=== PATIENT | female | born 1980 | race Caucasian/White ===

== ENCOUNTER 2016-10-02 14:26 | Emergency (ER) | payer BC, OTHER ==
[2016-10-02 14:26] VITALS: BMI 27.0
[2016-10-02 14:33] VITALS: PULSE 96; O2SAT 100
[2016-10-02] MEDS ORDERED: Amoxicillin-Clav 875-125 mg Tab PO STA (14:53)
[2016-10-02] MEDS ORDERED: Amoxicillin-Clav 875-125 mg Tab PO ONE (15:04)
--- NOTE | 2016-10-02 15:22 | C.PDOC ---
History Of Present Illness 36 year old female presents to the ED with complaints of nasal congestion and bilateral earache that has developed gradually since this morning. Patient reports, intermittent Left upper central toothache for past few days. Patient denies fever, chills, headache, dizziness, vertigo, ear discharges, sore throat , neck pain, drooling, trismus, facial swelling, recent dental work, cough, shortness of breath, abd. pain, N/V/D, back pain, denies any other active complaints. Ambulate to Ed for evaluation, not in any apparent distress. Time Seen by Provider: 10/02/16 14:44 Chief Complaint (Nursing): ENT Problem History Per: Patient History/Exam Limitations: None Onset/Duration Of Symptoms: Hrs Current Symptoms Are (Timing): Still Present Quality (Ear): Other (bilateral earache ) Anticoagulant/Antiplatlet Use?: No Recent Aspirin Use: No Past Medical History Reviewed: Historical Data, Nursing Documentation, Vital Signs Vital Signs: Last Vital Signs Temp 99.5 F 10/02/16 15:52 Pulse 96 H 10/02/16 15:52 Resp 12 10/02/16 15:52 BP 118/80 10/02/16 15:52 Pulse Ox 100 10/02/16 16:16 - [facility] Procedures MANUAL ASSIST DELIV NEC (07/04/13) Family History: States: Unknown Family Hx - Social History Hx Alcohol Use: No Hx Substance Use: No - Immunization History Hx Tetanus Toxoid Vaccination: No Hx Influenza Vaccination: No Hx Pneumococcal Vaccination: No Review Of Systems Constitutional: Negative for: Fever, Chills ENT: Positive for: Nose Congestion, Other (bilateral earache ) Cardiovascular: Negative for: Chest Pain, Palpitations Respiratory: Negative for: Cough, Shortness of Breath Gastrointestinal: Negative for: Nausea, Vomiting Physical Exam - Physical Exam Appears: Well, Non-toxic, No Acute Distress Skin: Normal Color, Warm, Dry, No Rash Eye(s): bilateral: PERRL Nose: No Flaring, Discharge (B/L nasal congestion with scant clear rhinorhea), Other (mild B/L paranasal tenderness. No edema, no erythema.) Oral Mucosa: Moist Tongue: Normal Appearing Lips: Normal Appearing Teeth: Caries (Left upper central incisor with mild tenderness to percussion.) Gingiva: No Erythema, No Swelling, No Abscess Throat: Normal, No Erythema, No Exudate, No Drooling Neck: Supple Cardiovascular: Rhythm Regular Respiratory: No Stridor, No Wheezing Extremity: Normal ROM, No Deformity, No Swelling Neurological/Psych: Oriented x3, Normal Speech ED Course And Treatment O2 Sat by Pulse Oximetry: 100 (room air ) Pulse Ox Interpretation: Normal Progress Note: On re-evaluation, pt is afebrile, hemodynamicaly stable. Non- toxic. Tolerate Po well in ED. Ambulatory in ED with stable gait. PulseOx 100 % RA. Neck: Supple, (-) meningeal sign. ENT: exam c/w acute maxillar sinusitis. No facial swelling, no evidence of tooth abscess. Lungs: CTA B/L, BS equal B/L. ABd: benign. Pt advised on wound care. ref. to F/u with PMD and ENT in 1-2 days for re-eval. return if any new changes. Disposition Counseled Patient/Family Regarding: Diagnosis, Need For Followup, Rx Given - Disposition Referrals: [facility] at [facility] [Outside] Bubba Damico MD [Staff Provider] - Disposition: HOME/ ROUTINE Disposition Time: 15:19 Condition: STABLE Additional Instructions: Avid exposure to cold air Take medication as prescribed Follow up with PMD in 2-3 days for re-evaluation. Return to ED if any worsening or new changes. Prescriptions: Amoxicillin/Clavulanate [Augmentin 875 MG-125 MG] 1 tab PO BID #14 tab Prednisone [Deltasone] 20 mg PO DAILY #3 tablet Instructions: Sinusitis (ED) Forms: [facility] (Belarusian), Work Excuse - Clinical Impression Clinical Impression: Acute maxillary sinusitis - Scribe Statement The provider has reviewed the documentation as recorded by the Scribe Dottie Maria All medical record entries made by the Scribe were at my direction and personally dictated by me. I have reviewed the chart and agree that the record accurately reflects my personal performance of the history, physical exam, medical decision making, and the department course for this patient. I have also personally directed, reviewed, and agree with the discharge instructions and disposition.
[2016-10-02 15:53] VITALS: BP 118/80; RESP 12; TEMP 99.5
== END 2016-10-02 15:53 | disposition home or self-care (01) ==
LOC: C.ER 14:26
DX: J01.00 Acute maxillary sinusitis, unspecified (principal)

== ENCOUNTER 2017-01-30 11:01 | Emergency (ER) | payer BC ==
[2017-01-30 11:01] VITALS: BMI 27.0
[2017-01-30 11:15] VITALS: BP 123/88; PULSE 83; RESP 18; TEMP 97.8; O2SAT 100
[2017-01-30 11:55] LABS: RBC URINE 12 /hpf (0-3); URINE BILIRUBIN NEGATIVE (NEGATIVE); URINE BLOOD 1+ (NEGATIVE); URINE COLOR Yellow (YELLOW); URINE GLUCOSE (UA) NORMAL (Normal); URINE KETONE NEGATIVE (NEGATIVE); URINE LEUKOCYTE ESTERASE TRACE Leu/uL (Negative); URINE PROTEIN NEGATIVE (NEGATIVE); URINE UROBILINOGEN NORMAL mg/dL (0.2-1.0); WBC URINE 3 /hpf (0-5)
--- NOTE | 2017-01-30 11:58 | C.PDOC ---
History Of Present Illness 36 yr female presents to the ER with complaints of left lower back pain for the past 2 weeks. Patient states the pain is dull, intermittent and increases with movement, state sits deep and 10/10. Patient states she was at work today, sneezed and felt something split in the area. Patient states the pain is made worse with breathing and movement. Denies fever, chills, chest pain, SOB, nausea , vomiting, abdominal pain, dysuria, incontinence, weakness or numbness. Time Seen by Provider: 01/30/17 11:57 Chief Complaint (Nursing): Back Pain History Per: Patient History/Exam Limitations: no limitations Onset/Duration Of Symptoms: Persistent (2 weeks) Past Medical History Reviewed: Historical Data, Nursing Documentation, Vital Signs Vital Signs: Last Vital Signs Temp 97.8 F 01/30/17 11:14 Pulse 83 01/30/17 11:14 Resp 18 01/30/17 11:14 BP 123/88 01/30/17 11:14 Pulse Ox 100 01/30/17 13:31 - [facility] Procedures MANUAL ASSIST DELIV NEC (07/04/13) Family History: States: No Known Family Hx - Social History Hx Alcohol Use: No Hx Substance Use: No - Immunization History Hx Tetanus Toxoid Vaccination: No Hx Influenza Vaccination: No Hx Pneumococcal Vaccination: No Review Of Systems Except As Marked, All Systems Reviewed And Found Negative. Constitutional: Negative for: Fever, Chills Cardiovascular: Negative for: Chest Pain Respiratory: Negative for: Shortness of Breath Gastrointestinal: Negative for: Nausea, Vomiting, Abdominal Pain Genitourinary: Negative for: Dysuria, Incontinence Musculoskeletal: Positive for: Back Pain (Left lower back pain) Neurological: Negative for: Weakness, Numbness Physical Exam - Physical Exam Appears: Non-toxic, In Acute Distress (Mild pain. Favoring left side. Splinting. ) Skin: Warm, Dry, No Rash Head: Atraumatic, Normacephalic Chest: Symmetrical, No Tenderness Cardiovascular: Rhythm Regular, No Murmur Respiratory: Normal Breath Sounds, No Rales, No Rhonchi, No Stridor, No Wheezing Gastrointestinal/Abdominal: Normal Exam, Soft, No Tenderness, No Guarding, No Rebound Back: Other ((+) Point tenderness to the inferior to the 12th rib, left side.) Neurological/Psych: Oriented x3, Normal Speech, Normal Motor ED Course And Treatment O2 Sat by Pulse Oximetry: 100 (RA) Pulse Ox Interpretation: Normal - Other Rad CXR X-Ray: Viewed By Me, Read By Radiologist Interpretation: HISTORY: mid back pain. COMPARISON: None available. TECHNIQUE: Chest PA and lateral. FINDINGS: LUNGS: No focal consolidation. Please note that chest x-ray has limited sensitivity for the detection of pulmonary masses. PLEURA: No significant pleural effusion identified. No definite pneumothorax . CARDIOVASCULAR: The cardiomediastinal silhouette appears within normal limits of size. OSSEOUS STRUCTURES: No acute osseous abnormality identified. VISUALIZED UPPER ABDOMEN: Unremarkable. OTHER FINDINGS: None. IMPRESSION: No focal consolidation, significant pleural effusion, or definite pneumothorax identified. Medical Decision Making Medical Decision Making: PLAN: * CXR * Urinalysis * Lidoderm TD * Motrin PO * Tylenol PO * Valium PO Disposition Counseled Patient/Family Regarding: Studies Performed, Diagnosis, Need For Followup, Rx Given - Disposition Referrals: [facility] at [facility] [Outside] Disposition: HOME/ ROUTINE Disposition Time: 13:35 Condition: STABLE Additional Instructions: Don't drive wile taking medication. Follow up with your doctor or the clinic. Prescriptions: diaZEpam [Valium] 5 mg PO TID #15 tab Ibuprofen [Motrin] 600 mg PO TID #15 tab Instructions: Muscle Spasm (ED) Forms: [facility] (Georgian), General Discharge Instructions, Work Excuse - POA Present On Arrival: None - Clinical Impression Clinical Impression: Muscle spasm - Scribe Statement The provider has reviewed the documentation as recorded by the Marlinibe Danielle Preciado Provider Attestation: All medical record entries made by the Mary were at my direction and personally dictated by me. I have reviewed the chart and agree that the record accurately reflects my personal performance of the history, physical exam, medical decision making, and the department course for this patient. I have also personally directed, reviewed, and agree with the discharge instructions and disposition.
[2017-01-30] MEDS ORDERED: Lidocaine 5% Patch TD STA (12:02)
--- NOTE | 2017-01-30 12:08 | RAD ---
HISTORY: mid back pain COMPARISON: None available. TECHNIQUE: Chest PA and lateral FINDINGS: LUNGS: No focal consolidation. Please note that chest x-ray has limited sensitivity for the detection of pulmonary masses. PLEURA: No significant pleural effusion identified. No definite pneumothorax . CARDIOVASCULAR: The cardiomediastinal silhouette appears within normal limits of size. OSSEOUS STRUCTURES: No acute osseous abnormality identified. VISUALIZED UPPER ABDOMEN: Unremarkable. OTHER FINDINGS: None. IMPRESSION: No focal consolidation, significant pleural effusion, or definite pneumothorax identified.
[2017-01-30] MEDS ORDERED: Lidocaine 5% Patch TD ONE (12:09)
== END 2017-01-30 13:48 | disposition home or self-care (01) ==
LOC: C.ER 11:01
DX: M62.838 Other muscle spasm (principal)

== ENCOUNTER 2018-02-21 18:27 | Emergency (ER) | payer BC, OTHER ==
[2018-02-21 18:27] VITALS: BMI 27.0
[2018-02-21 18:33] VITALS: RESP 16; O2SAT 100
[2018-02-21] MEDS ORDERED: Sodium Chloride 0.9% 1,000 ML IV ONE (19:45)
--- NOTE | 2018-02-21 19:45 | C.PDOC ---
History Of Present Illness 37 y/o female presents to the ED complaining of dizziness since early this morning. Denies any chest pain, SOB, visual changes, or slurred speech. Patient reports having some nausea, but no vomiting. Symptoms worsen when changing pos ition from lying down to standing up. On arrival to the ED patient feels somewhat improved. Time Seen by Provider: 02/21/18 19:44 Chief Complaint (Nursing): Dizziness/Lightheaded History Per: Patient History/Exam Limitations: no limitations Onset/Duration Of Symptoms: Hrs Current Symptoms Are (Timing): Still Present Past Medical History Reviewed: Historical Data, Nursing Documentation, Vital Signs Vital Signs: Last Vital Signs Temp 98.6 F 02/21/18 18:29 Pulse 72 02/21/18 18:29 Resp 16 02/21/18 18:29 BP 119/76 02/21/18 18:29 Pulse Ox 100 02/21/18 18:29 - Medical History PMH: No Chronic Diseases Surgical History: No Surg Hx - [facility] Procedures MANUAL ASSIST DELIV NEC (07/04/13) Family History: States: Unknown Family Hx - Social History Hx Tobacco Use: No Hx Alcohol Use: No Hx Substance Use: No - Immunization History Hx Tetanus Toxoid Vaccination: No Hx Influenza Vaccination: No Hx Pneumococcal Vaccination: No Review Of Systems Constitutional: Negative for: Fever, Chills Eyes: Negative for: Vision Change Cardiovascular: Negative for: Chest Pain Respiratory: Negative for: Shortness of Breath Gastrointestinal: Positive for: Nausea. Negative for: Vomiting Neurological: Positive for: Dizziness. Negative for: Weakness, Numbness, Change in Speech Physical Exam - Physical Exam Appears: Non-toxic, No Acute Distress Skin: Warm, Dry Head: Normacephalic Eye(s): bilateral: Normal Inspection (no nystagmus), PERRL, EOMI Ear(s): Bilateral: Normal Nose: Normal Oral Mucosa: Moist Neck: Trachea Midline, Supple Chest: Symmetrical Cardiovascular: Rhythm Regular Respiratory: No Rales, No Rhonchi, No Wheezing Gastrointestinal/Abdominal: Soft, No Tenderness, No Distention Extremity: Bilateral: Atraumatic, Normal ROM Pulses: Left Dorsalis Pedis: Normal, Right Dorsalis Pedis: Normal Neurological/Psych: Oriented x3, Normal Speech, Normal Cranial Nerves, No Romberg, Other (No focal deficits) ED Course And Treatment - Laboratory Results Result Diagrams: 02/21/18 20:38 02/21/18 20:38 O2 Sat by Pulse Oximetry: 100 (RA) Pulse Ox Interpretation: Normal - CT Scan/US CT head Other Rad Studies (CT/US): Read By Radiologist, Radiology Report Reviewed CT/US Interpretation: EXAM: CT Head without Intravenous Contrast. CLINICAL HISTORY: Dizziness. TECHNIQUE: Axial computed tomography images of the head/brain without intravenous contrast. 0.00 mGy-cm. COMPARISON: None provided. FINDINGS: BRAIN. No acute intraparenchymal hemorrhage. No mass lesion. No CT evidence for acute territorial infarct. No midline shift or extra- axial collections. VENTRICLES: No hydrocephalus. ORBITS: The orbits are unremarkable. SINUSES AND MASTOIDS: The paranasal sinuses and mastoid air cells are clear. BONES: No fracture. SOFT TISSUES: Unremarkable. IMPRESSION: No acute intracranial abnormality. . Electronically signed on Feb 21, 2018 10:36:35 PM EST by: Bobby Dixon M.D., RODOLFO Certified By ABR & CBCCT. Fellowship Trained MRI and CT Specialist. Progress Note: Blood work and urine ordered and reviewed. Administered IV fluids, Zofran, and meclizine. Disposition Counseled Patient/Family Regarding: Studies Performed, Diagnosis, Need For Followup, Rx Given - Disposition Referrals: [facility] at [facility] [Outside] [facility] [Outside] Disposition: HOME/ ROUTINE Disposition Time: 19:44 Condition: FAIR Additional Instructions: Please return if symptoms recur Prescriptions: Meclizine [Antivert] 25 mg PO TID #21 tab Ondansetron ODT [Zofran ODT] 1 odt PO BID PRN #6 odt PRN Reason: Nausea/Vomiting Instructions: Labyrinthitis, Vertigo (a Type of Dizziness) Forms: [facility] (Russian) - Clinical Impression Clinical Impression: Dizziness - Scribe Statement The provider has reviewed the documentation as recorded by the Mary Snell Provider Attestation: All medical record entries made by the Marlinibjamison were at my direction and personally dictated by me. I have reviewed the chart and agree that the record accurately reflects my personal performance of the history, physical exam, medical decision making, and the department course for this patient. I have also personally directed, reviewed, and agree with the discharge instructions and disposition.
[2018-02-21 20:19] LABS: SQUAMOUS EPITHIAL 1 /hpf (0-5); URINE BACTERIA OCC (<OCC); URINE BILIRUBIN NEGATIVE (NEGATIVE); URINE CLARITY Clear (Clear); URINE COLOR Yellow (YELLOW); URINE GLUCOSE (UA) NORMAL (Normal); URINE LEUKOCYTE ESTERASE TRACE Leu/uL (Negative); URINE PROTEIN 2+ mg/dL (NEGATIVE); URINE UROBILINOGEN NORMAL mg/dL (0.2-1.0)
[2018-02-21 20:23] LABS: HCG,QUALITATIVE URINE NEGATIVE (NEGATIVE); URINE BLOOD 1+ (NEGATIVE)
[2018-02-21] MEDS ORDERED: Sodium Chloride 0.9% 1,000 ML ONE (20:24)
[2018-02-21 20:44] LABS: BASO # 0.1 K/uL (0.0-0.2); NEUT # 5.8 K/uL (1.8-7.0)
[2018-02-21 20:51] LABS: BASO % 1.1 % (0.0-2.0); EOS % 0.1 % (0.0-4.0); LYMPH % 23.3 % (20.0-40.0); MEAN CORPUSCULAR HEMOGLOBIN 29.8 pg (27.0-31.0); MEAN CORPUSCULAR HGB CONC 33.9 g/dL (33.0-37.0); MEAN PLATELET VOLUME 8.9 fL (7.2-11.7); MONO # 0.7 K/uL (0.0-0.8); MONO % 7.8 % (0.0-10.0); NEUT % 67.7 % (50.0-75.0); RBC 4.53 Mil/uL (3.80-5.20); RED CELL DISTRIBUTION WIDTH 13.8 % (11.5-14.5); WHITE BLOOD COUNT 8.5 K/uL (4.8-10.8)
[2018-02-21 20:53] LABS: INR 1.2; PROTHROMBIN TIME 13.2 SECONDS (9.7-12.2)
[2018-02-21 20:57] LABS: ALB/GLOB RATIO 1.5 (1.0-2.1); ALBUMIN 4.7 g/dL (3.5-5.0); ALT/SGPT 22 U/L (9-52); AST/SGOT 20 U/L (14-36); BLOOD UREA NITROGEN 9 mg/dL (7-17); CALCIUM 9.2 mg/dl (8.6-10.4); GFR NON-AFRICAN AMERICAN > 60
[2018-02-21 21:01] LABS: HEMOGLOBIN 13.5 g/dL (11.0-16.0); MEAN CELL VOLUME 87.7 fL (81.0-99.0)
[2018-02-21 23:50] VITALS: BP 120/70; PULSE 78; TEMP 98.5
--- NOTE | 2018-02-22 07:18 | CT ---
Date of service: 02/21/2018 PROCEDURE: CT HEAD WITHOUT CONTRAST. HISTORY: dizziness COMPARISON: None available. TECHNIQUE: Axial computed tomography images were obtained through the head/brain without intravenous contrast. Radiation dose: Total exam DLP = 956.84 mGy-cm. This CT exam was performed using one or more of the following dose reduction techniques: Automated exposure control, adjustment of the mA and/or kV according to patient size, and/or use of iterative reconstruction technique. FINDINGS: HEMORRHAGE: No intracranial hemorrhage. BRAIN: No mass effect or edema. No atrophy or chronic microvascular ischemic changes. VENTRICLES: Unremarkable. No hydrocephalus. CALVARIUM: Unremarkable. PARANASAL SINUSES: Unremarkable as visualized. No significant inflammatory changes. MASTOID AIR CELLS: Unremarkable as visualized. No inflammatory changes. OTHER FINDINGS: None. IMPRESSION: No acute intracranial abnormality. If symptoms persists, consider correlation with MRI. A preliminary report was generated at 10:36 p.m. on 02/21/[address] Bobby Dixon from [facility].
== END 2018-02-21 23:49 | disposition home or self-care (01) ==
LOC: C.ER 18:27
DX: R42 Dizziness and giddiness (principal)
CPT/HCPCS: 70450; 80053; 81001; 84703; 85025; 85610; 85730; 96361; 96374; 99285; J2405; J7030